=== PATIENT | female | born 1975 | race Caucasian/White ===

== ENCOUNTER → 2019-04-03 | Emergency (ER) | payer OTHER ==
[~2019-04-03] VITALS: Ht 165.1 cm; Wt 117.9 kg
[~2019-04-03] MED LIST: BACLOFEN; BACLOFEN10 MG PO; BIOTIN10 MG; CALCIUM500 M1; MAGNESIUM500 MG; MAYZENT2 MG; NEURONTIN300 MG; NORLYDA0.35 MG; PRINIVIL10 MG; VENLAFAXINE HCL75 M2; VITAMIN D310 MC1; [UNRECOGNIZED DRUG - OTHER]
== END | disposition home or self-care (01) ==
LOC: ER 00:11
DX: G35 Multiple sclerosis (principal)